=== PATIENT | male | born 1950 | race Caucasian/White ===

== ENCOUNTER → 2017-03-18 | Outpatient (CLI) | payer MEDICARE, OTHER ==
[~2017-03-18] MED LIST: AMIT10TA6; AMIT25TA9; CLOP75TA28 OR; CLOP75TA41; CYCL1TAB18; ELECTROLYTES; FURO40TA4 PO; METO25TA5 PO; ROSU20TA14; ROSU5TAB5; SIL25T; [UNRECOGNIZED DRUG - OTHER]
[2017-03-18 16:09] LABS: Vitamin B12 > 2000 pg/mL (211-911)
[2017-03-18 16:21] LABS: Temperature: 23.9 C (20.0-25.0)
== END | disposition home or self-care (01) ==
LOC: LAB 15:10
DX: Z71.89 Other specified counseling (principal); D50.0 Iron deficiency anemia secondary to blood loss (chronic)
CPT/HCPCS: 36415; 82607; 82728; 82746; 83010; 83540; 83550; 83615; 85045; 86880; 86885

== ENCOUNTER → 2017-03-26 | Outpatient (CLI) | payer MEDICARE, OTHER | END | disposition home or self-care (01) | LOC: LAB 10:22 | DX: Z71.89 Other specified counseling (principal); D50.0 Iron deficiency anemia secondary to blood loss (chronic) | CPT/HCPCS: 82270 ==

== ENCOUNTER 2018-05-06 11:34 | Inpatient (IN) | payer MEDICARE, OTHER ==
[~2018-05-06] VITALS: Ht 170.2 cm; Wt 67.8 kg
[~2018-05-06 11:34] MED LIST changes: +ALEN1TAB32 PO; +AMIT25TA9 PO; +ATOV5SUS PO; +AZIT500T4 PO; +CALC-450 OR; +FLU01T PO; +FLUC200T50 PO; +GARL200T PO; +GUAI200T2 PO; +MAGN400T5 PO; +MULT-424 OR; +PANT40T PO; +POM PO; +POTA10TA51 PO; +PRE1T PO; +TRAM50TA2 PO; +VALG1TAB PO
[2018-05-06] MEDS ORDERED: methylPREDNISolone SOD SUCC 125 MG/2 ML VL IV ONE (12:15)
[2018-05-06 13:02] LABS: Hemoglobin 12.7 g/dL (13.5-17.5); Mean Corpuscular Hemoglobin 35.5 pg (28.0-32.0); Mean Corpuscular Hgb Conc. 34.3 g/dL (32.0-36.0); Mean Corpuscular Volume 103.6 fL (80.0-100.0); Platelet Count (auto) 126 10^3/uL (140-450); Red Blood Cells 3.57 10^6/uL (4.5-5.90); Red Cell Distribution Width 15.7 % (11.8-14.3); White Blood Cell 3.1 10^3/uL (4.4-10.8)
[2018-05-06 13:07] LABS: Basophils % (manual) 0 (0.0-2.0); Blast Cells 0; Metamyelocytes % 0; Myelocytes % 0; Promyelocytes % 0; Reactive Lymphocytes 0
[2018-05-06 13:18] LABS: Lactic Acid w/Reflex 2.9 mmol/L (0.4-2.0)
[2018-05-06 13:22] LABS: Albumin 2.6 g/dL (3.4-5.0); BUN/Creatinine Ratio 10.1; Bilirubin, Total 1.4 mg/dL (0.2-1.0); Calcium 8.2 mg/dL (8.5-10.1); Potassium 3.8 mmol/L (3.5-5.1); Total Protein 6.4 g/dL (6.4-8.2)
[2018-05-06 13:40] LABS: Band Neutrophils % (manual) 2; Eosinophils % (manual) 6 (0-7); Lymphocytes % (manual) 36 (10.0-50.0); Monocytes % (manual) 8 (0-12)
[2018-05-06] MEDS ORDERED: NITROGLYCERIN 0.4 MG SL TAB SL PRN (14:45)
[2018-05-06] MEDS ORDERED: AZITHROMYCIN 500MG/ 250ML 250 ML IV ONE (14:45)
[2018-05-06] MEDS ORDERED: cefTRIAXone 1GM/10ml IVPUSH 10 ML IV ONE (14:45)
[2018-05-06] MEDS ORDERED: MORPHINE SULF INJ 2 MG/ML SYRINGE 1ML IV PRN (14:45)
[2018-05-06] MEDS ORDERED: predniSONE 5 MG TAB PO ONE ×2 (14:45→15:15)
[2018-05-06] MEDS ORDERED: ASPirin 81 mg TAB PO ONE (15:00)
[2018-05-06] MEDS ORDERED: TACROLIMUS PO SCH (18:00)
[2018-05-06 21:00] VITALS: BP 122/63
[2018-05-06 22:00] VITALS: BP 122/63
[2018-05-06] MEDS ORDERED: VALGANCICLOVIR 450 MG PO SCH (22:00)
[2018-05-06] MEDS ORDERED: guaiFENesin 200 MG/10 ML UD PO PRN (22:30)
[2018-05-06] MEDS: VALGANCICLOVIR 450 MG PO SCH (22:53)
[2018-05-06] MEDS: GARLIC PO SCH (22:54)
[2018-05-06] MEDS: AMITRIPTYLINE HCL 25 MG TAB PO SCH (22:54)
[2018-05-06] MEDS: ATORVASTATIN 20 MG TAB PO SCH (22:54)
[2018-05-06] MEDS: MAGNESIUM OXIDE 400 MG TAB PO SCH (22:55)
[2018-05-06 23:06] LABS: Urine Bacteria NONE SEEN /hpf (None Seen); Urine Blood Negative /uL (Negative); Urine Specific Gravity 1.011 (1.001-1.035); Urine WBC 1 /hpf (0 - 3)
[2018-05-06] MEDS ORDERED: TACRPOW10 PO ×2 (23:15)
[2018-05-06] MEDS ORDERED: FLUT110A INH (23:15)
[2018-05-06] MEDS ORDERED: LACT10SO66 PO (23:15)
[2018-05-06] MEDS ORDERED: [UNRECOGNIZED DRUG - CODE] PO (23:15)
[2018-05-06] MEDS ORDERED: CALC-473 PO (23:15)
[2018-05-06] MEDS ORDERED: GUAI200T2 PO (23:15)
[2018-05-06] MEDS ORDERED: MULT-424 PO (23:15)
[2018-05-07 05:30] VITALS: BP 126/68
[2018-05-07 07:48] LABS: Hemoglobin 11.9 g/dL (13.5-17.5); White Blood Cell 3.7 10^3/uL (4.4-10.8)
[2018-05-07 07:50] LABS: Hematocrit 34.3 % (41.0-53.0); Mean Corpuscular Hemoglobin 35.2 pg (28.0-32.0); Mean Corpuscular Hgb Conc. 34.7 g/dL (32.0-36.0); Mean Corpuscular Volume 101.3 fL (80.0-100.0); Platelet Count (auto) 103 10^3/uL (140-450); Red Blood Cells 3.38 10^6/uL (4.5-5.90); Red Cell Distribution Width 15.2 % (11.8-14.3)
[2018-05-07 07:52] LABS: Basophils % (manual) 0 (0.0-2.0); Blast Cells 0; Eosinophils % (manual) 0 (0-7); Myelocytes % 0; Promyelocytes % 0; Reactive Lymphocytes 0
[2018-05-07 08:02] LABS: Calcium 8.1 mg/dL (8.5-10.1); Magnesium 1.9 mg/dL (1.6-2.6); Potassium 4.2 mmol/L (3.5-5.1)
[2018-05-07 08:03] VITALS: BP 126/75
[2018-05-07 08:08] LABS: BUN/Creatinine Ratio 13.3
[2018-05-07 08:15] LABS: Band Neutrophils % (manual) 2; Lymphocytes % (manual) 12 (10.0-50.0); Metamyelocytes % 1; Monocytes % (manual) 3 (0-12)
[2018-05-07] MEDS: cefTRIAXone 1GM/10ml IVPUSH 10 ML IV SCH (10:06)
[2018-05-07] MEDS: AZITHROMYCIN 500MG/ 250ML 250 ML IV SCH (10:19)
[2018-05-07] MEDS: FLUDROCORTISONE ACETATE 0.1 MG TAB PO SCH (10:19)
[2018-05-07] MEDS: POTASSIUM CHL 10 Meq TABLET PO SCH (10:20)
[2018-05-07] MEDS: ASPirin 81 mg TAB PO SCH (10:20)
[2018-05-07] MEDS: PANTOPRAZOLE 40 MG TAB PO SCH (10:20)
[2018-05-07] MEDS: predniSONE 5 MG TAB PO SCH (10:20)
[2018-05-07] MEDS: MAGNESIUM OXIDE 400 MG TAB PO SCH ×2 (10:20→22:02)
[2018-05-07] MEDS: MULTIPLE VITAMIN TAB PO SCH (10:20)
[2018-05-07] MEDS: VALGANCICLOVIR 450 MG PO SCH ×2 (11:47→22:01)
[2018-05-07] MEDS: GARLIC PO SCH ×2 (11:47→22:01)
[2018-05-07 12:30] VITALS: BP 108/65
[2018-05-07 16:31] VITALS: BP 116/71
[2018-05-07 21:59] VITALS: BP 121/73
[2018-05-07] MEDS ORDERED: ATOVAQUONE 750 MG/5 ML SUSP PO SCH (22:00)
[2018-05-07] MEDS: ATORVASTATIN 20 MG TAB PO SCH (22:02)
[2018-05-07] MEDS: AMITRIPTYLINE HCL 25 MG TAB PO SCH (22:02)
[2018-05-07] MEDS: ATOVAQUONE 750 MG/5 ML SUSP PO SCH (22:22)
[2018-05-08] VITALS (7 sets, daily range): BP systolic 125–152; BP diastolic 71–86
[2018-05-08] MEDS: traMADol HCL 50 MG TAB PO PRN ×2 (01:44→22:37)
[2018-05-08] MEDS: MAGNESIUM OXIDE 400 MG TAB PO SCH ×2 (10:00→22:23)
[2018-05-08] MEDS: VALGANCICLOVIR 450 MG PO SCH ×2 (10:00→22:22)
[2018-05-08] MEDS: GARLIC PO SCH ×2 (10:00→22:22)
[2018-05-08] MEDS: cefTRIAXone 1GM/10ml IVPUSH 10 ML IV SCH (11:10)
[2018-05-08] MEDS: AZITHROMYCIN 500MG/ 250ML 250 ML IV SCH (11:11)
[2018-05-08] MEDS ORDERED: IODIXANOL 320MG/ML 100ML BTL IV ONE (15:49)
[2018-05-08] MEDS ORDERED: LIDOCAINE 2%HCL (LOCAL ANESTH.) INJ 20ML MDV ONE (15:49)
[2018-05-08] MEDS ORDERED: fentaNYL CITRATE 100 MCG/2 ML VL ONE (15:52)
[2018-05-08] MEDS ORDERED: SODIUM CHL 0.9% 0 ML ONE (15:52)
[2018-05-08] MEDS ORDERED: MIDAZOLAM HCL 1MG/1ML-2 ML VIAL ONE (15:52)
[2018-05-08] MEDS ORDERED: ANGIOMAX 250 MG VIAL IV ONE (15:52)
[2018-05-08] MEDS: predniSONE 5 MG TAB PO SCH (17:46)
[2018-05-08] MEDS: POTASSIUM CHL 10 Meq TABLET PO SCH (17:47)
[2018-05-08] MEDS: ASPirin 81 mg TAB PO SCH (17:47)
[2018-05-08] MEDS: MULTIPLE VITAMIN TAB PO SCH (17:47)
[2018-05-08] MEDS: FLUDROCORTISONE ACETATE 0.1 MG TAB PO SCH (17:47)
[2018-05-08] MEDS: PANTOPRAZOLE 40 MG TAB PO SCH (17:48)
[2018-05-08] MEDS: AMITRIPTYLINE HCL 25 MG TAB PO SCH (22:23)
[2018-05-08] MEDS: ATORVASTATIN 20 MG TAB PO SCH (22:23)
[2018-05-08] MEDS: ATOVAQUONE 750 MG/5 ML SUSP PO SCH (22:25)
[2018-05-09 05:00] VITALS: BP 122/75
[2018-05-09 06:40] LABS: Hemoglobin 11.9 g/dL (13.5-17.5)
[2018-05-09 06:43] LABS: Hematocrit 34.2 % (41.0-53.0); Mean Corpuscular Hemoglobin 35.8 pg (28.0-32.0); Mean Corpuscular Hgb Conc. 34.9 g/dL (32.0-36.0); Mean Corpuscular Volume 102.6 fL (80.0-100.0); Platelet Count (auto) 110 10^3/uL (140-450); Red Blood Cells 3.33 10^6/uL (4.5-5.90); White Blood Cell 3.4 10^3/uL (4.4-10.8)
[2018-05-09 06:48] LABS: Band Neutrophils % (manual) 0; Basophils % (manual) 0 (0.0-2.0); Blast Cells 0; Metamyelocytes % 0; Myelocytes % 0; Promyelocytes % 0
[2018-05-09 06:59] LABS: BUN/Creatinine Ratio 19.3; Calcium 7.4 mg/dL (8.5-10.1); Potassium 3.5 mmol/L (3.5-5.1)
[2018-05-09 07:57] LABS: Eosinophils % (manual) 9 (0-7); Lymphocytes % (manual) 21 (10.0-50.0); Monocytes % (manual) 9 (0-12); Reactive Lymphocytes 3
[2018-05-09 08:00] VITALS: BP 125/71
[2018-05-09 09:30] VITALS: BP 125/71
[2018-05-09] MEDS: AZITHROMYCIN 500MG/ 250ML 250 ML IV SCH (09:34)
[2018-05-09] MEDS: cefTRIAXone 1GM/10ml IVPUSH 10 ML IV SCH (09:34)
[2018-05-09] MEDS: POTASSIUM CHL 10 Meq TABLET PO SCH (09:35)
[2018-05-09] MEDS: PANTOPRAZOLE 40 MG TAB PO SCH (09:36)
[2018-05-09] MEDS: ASPirin 81 mg TAB PO SCH (09:36)
[2018-05-09] MEDS: FLUDROCORTISONE ACETATE 0.1 MG TAB PO SCH (09:36)
[2018-05-09] MEDS: MAGNESIUM OXIDE 400 MG TAB PO SCH (09:37)
[2018-05-09] MEDS: predniSONE 5 MG TAB PO SCH (09:37)
[2018-05-09] MEDS: MULTIPLE VITAMIN TAB PO SCH (09:37)
[2018-05-09] MEDS: GARLIC PO SCH (10:42)
[2018-05-09] MEDS: VALGANCICLOVIR 450 MG PO SCH (10:43)
[2018-05-09 13:25] VITALS: BP 129/74
[2018-05-09 15:56] VITALS: BP 129/74
== END 2018-05-09 16:40 | disposition home or self-care (01) | DRG 286 ==
LOC: ER 11:34 → MERGE 11:35 → TELE 11:35 → TELE-WESTW 20:48
PROVIDERS: ADMIT Internal Medicine; ATTEND Internal Medicine
PROC: 4A023N7 Measurement of Cardiac Sampling and Pressure, Left Heart, Percutaneous Approach (ICD-10-PCS; principal; 2018-05-08)
PROC: B2111ZZ Fluoroscopy of Multiple Coronary Arteries using Low Osmolar Contrast (ICD-10-PCS; 2018-05-08)
PROC: B2151ZZ Fluoroscopy of Left Heart using Low Osmolar Contrast (ICD-10-PCS; 2018-05-08)
DX: R07.9 Chest pain, unspecified (principal); J18.9 Pneumonia, unspecified organism; J96.20 Acute and chronic respiratory failure, unspecified whether with hypoxia or hypercapnia; Z94.2 Lung transplant status; K76.6 Portal hypertension; J84.10 Pulmonary fibrosis, unspecified; D69.6 Thrombocytopenia, unspecified; K74.60 Unspecified cirrhosis of liver; K76.81 Hepatopulmonary syndrome; D64.9 Anemia, unspecified; I10 Essential (primary) hypertension; I27.20 Pulmonary hypertension, unspecified; Z82.49 Family history of ischemic heart disease and other diseases of the circulatory system; Z99.81 Dependence on supplemental oxygen; Z79.899 Other long term (current) drug therapy; Z79.82 Long term (current) use of aspirin
CPT/HCPCS: 36415; 36600; 71046; 80048; 80053; 81001; 82805; 83605; 83735; 83880; 84484; 85007; 85027; 87040; 87070; 87205; 93005; 93458; 94761; 96365; 96367; 96375; 96376; 99152; 99291; A6257; J0696; J2250; Q9967

== ENCOUNTER 2018-10-07 23:26 | Inpatient (IN) | payer MEDICARE, OTHER | END 2018-10-18 18:00 | disposition home or self-care (01) | LOC: ER 23:26 → TELE-WESTW 10-09 23:00 → OVERFLOW 10-08 07:08 | DX: J18.9 Pneumonia, unspecified organism (principal); J96.21 Acute and chronic respiratory failure with hypoxia; E43 Unspecified severe protein-calorie malnutrition; J44.1 Chronic obstructive pulmonary disease with (acute) exacerbation; D68.9 Coagulation defect, unspecified; J45.901 Unspecified asthma with (acute) exacerbation; J44.0 Chronic obstructive pulmonary disease with (acute) lower respiratory infection; Z94.2 Lung transplant status; J84.10 Pulmonary fibrosis, unspecified; K76.81 Hepatopulmonary syndrome; N18.2 Chronic kidney disease, stage 2 (mild); N18.9 Chronic kidney disease, unspecified; K74.60 Unspecified cirrhosis of liver ==